=== PATIENT | female | born 1965 | race Asian ===

== ENCOUNTER 2017-05-13 14:06 | Emergency (ER) | payer OTHER ==
[2017-05-13 14:14] VITALS: BP 110/67; PULSE 75; TEMP 99.7; BMI 23.6
--- NOTE | 2017-05-13 15:36 | PDOC ---
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 Occurred: reports: this afternoon Severity: Yes: moderate Lower Extremity Pain Location: right: foot, ankle Method of Injury: Yes: twisted Past History - Past Medical History Allergies/Adverse Reactions: Allergies Allergy/AdvReac Type Severity Reaction Status Date / Time No Known Allergies Allergy Verified 05/13/17 14:13 Home Medications: Ambulatory Orders Levothyroxine [Synthroid -] 75 mcg PO DAILY 05/13/17 Thyroid Disease: Yes (hypo) - Psycho/Social/Smoking Cessation Hx Anxiety: No Suicidal Ideation: No Smoking History: Never smoked Have you smoked in the past 12 months: No Information on smoking cessation initiated: No Hx Alcohol Use: No Drug/Substance Use Hx: No Substance Use Type: None Review of Systems - Review of Systems Able to Perform ROS?: Yes Is the patient limited Slovenian proficient: No Constitutional: No: Symptoms Reported HEENTM: No: Symptoms Reported Respiratory: No: Symptoms reported Cardiac (ROS): No: Symptoms Reported ABD/GI: No: Symptoms Reported Musculoskeletal: No: Symptoms Reported Integumentary: Yes: Symptoms Reported, See HPI, Other (right foot/ankle no swelling ttp left lateral maleous, nv intact ) Neurological: No: Symptoms reported *Physical Exam - Vital Signs Last Vital Signs Temp Pulse Resp BP Pulse Ox 99.7 F H 75 20 110/67 99 05/13/17 14:12 05/13/17 14:12 05/13/17 14:12 05/13/17 14:12 05/13/17 14:12 - Physical Exam General Appearance: Yes: Nourished, Appropriately Dressed HEENT: positive: EOMI, ARLEY Neck: positive: Supple Respiratory/Chest: positive: Lungs Clear, Normal Breath Sounds Musculoskeletal: positive: Normal Inspection Extremity: positive: Normal Capillary Refill, Normal Inspection, Normal Range of Motion, Tender (lateral maleouls, lateral base of fifth metatarsal, nv intact FROM ) Integumentary: positive: Normal Color, Dry, Warm. negative: Swelling Neurologic: positive: Fully Oriented, Alert, Normal Mood/Affect, Normal Response , Motor Strength 01/01 Procedures - Splinting Progress: 05/13/17 15:49 hard sole shoe, air cast splint. ED Treatment Course - RADIOLOGY Radiology Studies Ordered: Category Date Time Status ANKLE & FOOT-RIGHT* [RAD] Stat Radiology 05/13/17 14:55 Completed Medical Decision Making - Medical Decision Making 05/13/17 15:47 cc: twisted right foot and ankle at work will get xray to r/o fracture ice pack applied, motrin given GEOSPATIAL SPECIALIST 05/13/17 15:49 air cast splint and hard sole shoe placed nv intact will dc home with strict follow up with PMD on Wednesday as planned elevate, apply ice, motrin for pain follow up with PMD on wednesday pt refused crutches 05/13/17 15:49 *DC/Admit/Observation/Transfer Diagnosis at time of Disposition: Right ankle sprain Qualifiers: Encounter type: initial encounter Involved ligament of ankle: other ligament Qualified Code(s): S93.491A - Sprain of other ligament of right ankle, initial encounter - Discharge Dispostion Disposition: HOME Condition at time of disposition: Good - Referrals Referrals: Micki Benson MD [Primary Care Provider] - Oswaldo Shepherd MD [Staff Physician] - - Patient Instructions Additional Instructions: elevate and apply ice every 2 days for 20 minutes take motrin as needed for pain use the splint while awake remove to sleep and bathe follow with the orthopedist for follow up next week if pain worsens or persists - Post Discharge Activity Work/School Note: Back to Work Activity Comments: 05/13/17 15:36
== END 2017-05-13 15:37 | disposition home or self-care (01) ==
LOC: JERFT 14:06
DX: S93.491A Sprain of other ligament of right ankle, initial encounter (principal); W03.XXXA Other fall on same level due to collision with another person, initial encounter; Y93.89 Activity, other specified; Y92.218 Other school as the place of occurrence of the external cause; Y99.0 Civilian activity done for income or pay
CPT/HCPCS: 73610-TC-RT; 73630-TC-RT; 99281-25

== ENCOUNTER 2021-10-10 04:39 | Day surgery (SDC) | payer BC ==
[2021-10-07 14:45] VITALS: BMI 22.4
[2021-10-10 09:28] VITALS: TEMP 96.8
[2021-10-10 10:03] VITALS: BP 118/72; PULSE 76
== END 2021-10-10 10:16 | disposition home or self-care (01) ==
LOC: JASU-ENDO 04:39
PROVIDERS: ATTEND Internal Medicine Gastroenterology
PROC: 0DJD8ZZ Inspection of Lower Intestinal Tract, Via Natural or Artificial Opening Endoscopic (ICD-10-PCS; principal; 2021-10-10 08:30)
DX: Z12.11 Encounter for screening for malignant neoplasm of colon (principal); K63.89 Other specified diseases of intestine; K64.8 Other hemorrhoids
CPT/HCPCS: 81025

== ENCOUNTER 2024-12-20 16:12 | Day surgery (SDC) | payer BC ==
[2024-12-20] MEDS: IRON SUCROSE INJECTION 100 MG in SODIUM CHLORIDE 95 ML IVPB ONE (16:19)
[2024-12-20 17:02] VITALS: PULSE 88; RESP 18; TEMP 97.7
[2024-12-20 17:44] VITALS: BP 102/66
== END 2024-12-20 17:45 | disposition home or self-care (01) ==
LOC: JONCNONCHE 16:12 → J7W 16:13 → JONCNONCHE 17:45
PROVIDERS: ATTEND Internal Medicine Hematology & Oncology
PROC: 3E033GC Introduction of Other Therapeutic Substance into Peripheral Vein, Percutaneous Approach (ICD-10-PCS; principal; 2024-12-20)
DX: D50.9 Iron deficiency anemia, unspecified (principal)
CPT/HCPCS: 96365; J1756

== ENCOUNTER 2024-12-27 16:00 | Day surgery (SDC) | payer BC ==
[2024-12-27] MEDS: IRON SUCROSE INJECTION 100 MG in SODIUM CHLORIDE 100 ML IVPB ONE (16:13)
[2024-12-27 16:28] VITALS: BP 127/68; PULSE 107; TEMP 98.1
[2024-12-27 16:47] VITALS: RESP 20
== END 2024-12-27 17:05 | disposition home or self-care (01) ==
LOC: JONCCHEMO 16:00 → J7W 16:00 → JONCCHEMO 17:05
PROVIDERS: ATTEND Internal Medicine Hematology & Oncology
PROC: 3E033GC Introduction of Other Therapeutic Substance into Peripheral Vein, Percutaneous Approach (ICD-10-PCS; principal; 2024-12-27)
DX: D64.9 Anemia, unspecified (principal)
CPT/HCPCS: 96365; J1756